=== PATIENT | female | born 1980 | race Hispanic/Latino ===

== ENCOUNTER 2017-04-28 06:57 | Day surgery (SDC) | payer BC ==
[2017-04-26 15:38] LABS: EOSINOPHILS % (AUTO) 2.7 % (0.0-8.0); HEMATOCRIT 41.2 % (36-48); LYMPHOCYTES % (AUTO) 26.1 % (21.0-51.0); MEAN CORPUSCULAR HEMOGLOBIN 29.7 pg (27.0-33.0); MEAN CORPUSCULAR HGB CONC 34.1 g/dL (32.0-36.0); MEAN CORPUSCULAR VOLUME 87.2 fL (79-99); MONOCYTES % (AUTO) 6.5 % (3.0-13.0); NEUTROPHILS % (AUTO) 63.7 % (40.0-77.0); PLATELET COUNT (AUTO) 352 K/uL (130-400); RED BLOOD CELL COUNT(AUTO) 4.73 MIL/uL (4.00-5.50); WHITE BLOOD COUNT (AUTO) 10.7 K/uL (4.8-10.8)
[2017-04-26 15:40] VITALS: BP 131/81
[2017-04-28] VITALS (14 sets, daily range): BP systolic 117–138; BP diastolic 60–88
[~2017-04-28] VITALS: Ht 160 cm; Wt 58.7 kg
[~2017-04-28 06:57] MED LIST: CEFAZOLIN SODIUM 1 GM VIAL IVP SCH; LACTATED RINGERS 1000ML 1,000 ML IV SCH; LEVONORGESTREL PO
[2017-04-28] MEDS ORDERED: PROPOFOL 10 MG/ML 20ML VIAL IV ONE (07:38)
[2017-04-28] MEDS ORDERED: MIDAZOLAM HCL 1 MG/ML 2ML VIAL ONE (07:38)
[2017-04-28] MEDS ORDERED: FENTANYL CITRATE PF 50 MCG/1 ML 2ML VIAL ONE (07:41)
[2017-04-28] MEDS ORDERED: VASOPRESSIN 20 UNITS/ML 1ML VIAL ONE (08:01)
[2017-04-28] MEDS ORDERED: STRONG IODINE SOLUTION 30ML BOTTLE ONE (08:02)
[2017-04-28] MEDS ORDERED: LIDOCAINE PF 2% 5ML ABBOJECT ONE (08:05)
[2017-04-28] MEDS ORDERED: DEXAMETHASONE SOD PHOSPHATE 4 MG/ML 1ML VIAL ONE (08:05)
== END 2017-04-28 10:10 | disposition home or self-care (01) ==
LOC: DAH 06:57
PROVIDERS: ATTEND Specialist
DX: D06.0 Carcinoma in situ of endocervix (principal)
CPT/HCPCS: 36415; 57522; 84703; 85025; 86850; 86900; 86901; A4351; A4510; A4600; J1100; J2001; J2250; J2704; J3010; J3490; J7120

== ENCOUNTER 2017-07-26 12:15 | Inpatient (IN) | payer BC ==
[~2017-07-26] VITALS: Ht 162.6 cm; Wt 59.7 kg
[~2017-07-26 12:15] MED LIST changes: -CEFAZOLIN SODIUM 1 GM VIAL IVP SCH; -LACTATED RINGERS 1000ML 1,000 ML IV SCH
[2017-07-26 16:25] LABS: EOSINOPHILS % (AUTO) 2.6 % (0.0-8.0); HEMATOCRIT 38.8 % (36-48); MEAN CORPUSCULAR HEMOGLOBIN 29.1 pg (27.0-33.0); MEAN CORPUSCULAR HGB CONC 33.7 g/dL (32.0-36.0); MEAN CORPUSCULAR VOLUME 86.5 fL (79-99); MONOCYTES % (AUTO) 6.2 % (3.0-13.0); NEUTROPHILS % (AUTO) 64.2 % (40.0-77.0); PLATELET COUNT (AUTO) 348 K/uL (130-400); RED BLOOD CELL COUNT(AUTO) 4.49 MIL/uL (4.00-5.50); RED CELL DISTRIBUTION WIDTH 13.1 % (11.0-15.5); WHITE BLOOD COUNT (AUTO) 11.6 K/uL (4.8-10.8)
[2017-07-26 16:26] VITALS: BP 120/81
[2017-07-27] VITALS (21 sets, daily range): BP systolic 129–164; BP diastolic 71–95
[2017-07-27] MEDS ORDERED: WATER FOR INJECTION,STERILE 20 ML VIAL IJ ONE (08:00)
[2017-07-27] MEDS ORDERED: LACTATED RINGERS 1000ML 1,000 ML IV ONE (08:28)
[2017-07-27] MEDS: CEFAZOLIN SODIUM 1 GM VIAL IVP ONE ×2 (08:35→10:35)
[2017-07-27] MEDS ORDERED: FENTANYL CITRATE PF 50 MCG/1 ML 5ML AMP IV ONE (10:23)
[2017-07-27] MEDS ORDERED: MEPERIDINE-PF 75 MG/ML SYG IM PRN (12:15)
[2017-07-27] MEDS ORDERED: BISACODYL 10 MG SUPP.RECT RC PRN (12:15)
[2017-07-27] MEDS ORDERED: DOCUSATE SODIUM 100 MG CAP PO PRN (12:15)
[2017-07-27] MEDS ORDERED: PROMETHAZINE HCL 25 MG/ML 1ML AMPULE IM PRN (12:15)
[2017-07-27] MEDS ORDERED: SIMETHICONE 80 MG TAB.CHEW PO PRN (12:15)
[2017-07-27] MEDS ORDERED: MEPERIDINE-PF 25 MG/ML SYG ONE ×2 (12:25→12:39)
[2017-07-27] MEDS ORDERED: PROMETHAZINE HCL 25 MG/ML 1ML AMPULE IM ONE (12:25)
[2017-07-27] MEDS ORDERED: MORPHINE SULFATE 2 MG/ML 1ML SYG ONE ×2 (12:51→13:03)
[2017-07-27] MEDS: DEXTROSE 5 %-0.45 % NACL 1,000 ML IV PRN ×2 (13:50→21:07)
[2017-07-27] MEDS: ACETAMINOPHEN-CODEINE 300/30MG TAB PO PRN (18:11)
[2017-07-28] VITALS (7 sets, daily range): BP systolic 122–146; BP diastolic 77–89
[2017-07-28] MEDS: ACETAMINOPHEN-CODEINE 300/30MG TAB PO PRN ×2 (04:13→08:56)
[2017-07-28] MEDS: DEXTROSE 5 %-0.45 % NACL 1,000 ML IV PRN (04:13)
[2017-07-28 07:05] LABS: HEMATOCRIT 36.9 % (36-48); MEAN CORPUSCULAR HEMOGLOBIN 29.4 pg (27.0-33.0); MEAN CORPUSCULAR HGB CONC 34.2 g/dL (32.0-36.0); MEAN CORPUSCULAR VOLUME 85.9 fL (79-99); PLATELET COUNT (AUTO) 319 K/uL (130-400); RED CELL DISTRIBUTION WIDTH 12.8 % (11.0-15.5); WHITE BLOOD COUNT (AUTO) 14.1 K/uL (4.8-10.8)
[2017-07-28] MEDS ORDERED: IBUPROFEN 800 MG TAB PO PRN (09:30)
[2017-07-28] MEDS ORDERED: BISACODYL 10 MG SUPP.RECT RC PRN (09:30)
[2017-07-28] MEDS ORDERED: ACETAMINOPHEN-CODEINE 300/30MG TAB PO PRN (09:30)
[2017-07-28] MEDS: DOCUSATE SODIUM 100 MG CAP PO PRN (20:44)
[2017-07-28] MEDS: IBUPROFEN 800 MG TAB PO SCH (20:44)
[2017-07-28] MEDS: SIMETHICONE 80 MG TAB.CHEW PO PRN (20:45)
[2017-07-29 03:59] VITALS: BP 124/78
[2017-07-29 07:54] VITALS: BP 133/83
[2017-07-29] MEDS: IBUPROFEN 800 MG TAB PO SCH (08:12)
[2017-07-29] MEDS: DOCUSATE SODIUM 100 MG CAP PO PRN (08:59)
[2017-07-29] MEDS: SIMETHICONE 80 MG TAB.CHEW PO PRN (09:00)
== END 2017-07-29 11:15 | disposition home or self-care (01) | DRG 830 ==
LOC: DAHIP 07-27 07:29 → EDSTATUS 07-27 12:15 → WSH 07-27 13:40
PROVIDERS: ADMIT Specialist; ATTEND Specialist
PROC: 0UT90ZZ Resection of Uterus, Open Approach (ICD-10-PCS; principal; 2017-07-27 10:30)
DX: D09.9 Carcinoma in situ, unspecified (principal); D06.7 Carcinoma in situ of other parts of cervix
CPT/HCPCS: 36415; 84703; 85025; 85027; 86850; 86900; 86901; 88309; A4218; A4344; J0690; J2175; J2550; J3010; J7120